=== PATIENT | male | born 2005 | race Caucasian/White ===

== ENCOUNTER 2024-06-09 17:28 | Emergency (ER) | payer SELFPAY ==
--- NOTE | 2024-06-09 17:37 | ED.GENADULT ---
HPI - General Adult General Chief complaint: Skin/Abscess/Foreign Body Stated complaint: Rash Source: patient Mode of arrival: ambulatory Limitations: no limitations History of Present Illness HPI narrative: 18 y/o male presented for c/o itchy blister rash to arms and abdomen for about 5 days. Reports a few lesions to the left face and ear and thighs. Pt reports concern for poison yazmin, stating it started after clearing weeds. Pt did not wear a shirt while outside. Has been taking Benadryl, applied neosporin to some of the sites. Endorses draining from some of the blisters. Denies lip, tongue, or throat swelling, shortness of breath or wheezing. Denies changes to soap, detergent, lotion, or any other exposures. No one else in the house or any contacts with similar symptoms. Related Data Allergies Allergy/AdvReac Type Severity Reaction Status Date / Time No Known Allergies Allergy Verified 06/09/24 17:44 Review of Systems Review of Systems: CONSTITUTIONAL: Denies body aches, fever, chills, or sweats. EYES: Denies visual changes, redness, or discharge. ENT: Denies rhinorrhea, congestion CARDIOVASCULAR: Denies chest pain, palpitations, or edema. RESPIRATORY: Denies cough or dyspnea. GASTROINTESTINAL: Denies abdominal pain, nausea, vomiting, or diarrhea. SKIN: reports rash MUSCULOSKELETAL: Denies back pain, joint pain, or myalgia. NEUROLOGIC: Denies headache, numbness, tingling, or weakness. PMFSH Comments At time of signature, I have reviewed and agree with nursing past medical, surgical, social and family history unless otherwise noted. Please see nursing chart for further information. There is no relevant family history pertinent to the presenting complaint Exam Narrative: GENERAL: Well-appearing, well-nourished, and in no acute distress. EYES: PERRLA, conjunctivae clear, and EOMI. Mild left upper lid swelling. ENT: Mucous membranes moist. Oropharynx without edema, erythema or lesions. NECK: Supple. No lymphadenopathy CHEST: Clear to auscultation. No respiratory distress. HEART: Regular rate and rhythm. SKIN: Warm, dry. Scattered vesicles on erythematous base diffusely over the abdomen and upper extremities c/w contact dermatitis, many weeping lesions, no apparent infections. Few lesions to face and left ear and bilateral thighs. NEURO: Alert and oriented x3. PSYCH: Normal mood and affect Course Course Emergency Course: Patient is aware of diagnosis, understands and agrees to treatment plan. Anticipatory guidance given. Patient agrees to follow-up as directed and is aware of reasons to seek care at the emergency department. Portions of this record may have been created with voice recognition software Level of Care: Express Care Visit Vital Signs Vital signs: Reviewed Medical Decision Making MDM Narrative Medical decision making narrative: Discussed physical exam findings c/w contact dermatitis to torso and upper extremities. IM Solumedrol and pepcid given. Reviewed Rx's. Advised supportive measures and signs/symptoms to go to the ER. Pt is appropriate for outpt treatment and f/u. Differential Diagnosis Differential Diagnosis: Viral exanthema, contact dermatitis, allergic dermatitis, eczema, urticaria, insect bites, impetigo, tinea, folliculitis Discharge Plan Discharge Clinical Impression: Contact dermatitis Patient Disposition: Home, Self-Care Condition: Stable Instructions: Contact Dermatitis (ED) Additional Instructions: Take steroids and Pepcid as directed. -- Start tomorrow 06/10 Benadryl every 8 hours as needed Ok to apply neosporin to sites. You can apply cream such as benadryl, hydrocortisone or calamine as needed for itching. Cool compresses to the sites of itching, avoid hot water and hot temperatures. Avoid scratching to reduce the risk of infection Wash with gentle soap and water only, allow to fully dry You can keep the sites covered while draining Follow up with
[2024-06-09 17:40] VITALS: BP 157/90; PULSE 101; RESP 16; TEMP 37.5; O2SAT 99
[2024-06-09 17:44] VITALS: BP 157/90; PULSE 101; RESP 99; TEMP 37.5; O2SAT 99
[2024-06-09] MEDS: FAMOTIDINE 20 MG TABLET 40 MG PO (17:50)
[2024-06-09] MEDS: methylPREDNISolone SOD SUCC 125 MG VIAL IM (17:51)
== END 2024-06-09 18:01 | disposition home or self-care (01) ==
PROVIDERS: Emergency Provider Nurse Practitioner Family
DX: L25.9 Unspecified contact dermatitis, unspecified cause (principal)
CPT/HCPCS: 96372; 99213; A9270; G0463; J2919

== ENCOUNTER 2025-08-10 09:13 | Emergency (ER) | payer OTHER, SELFPAY ==
--- NOTE | ~2025-08-10 | XR_ITS ---
EXAMINATION: XR finger 5th RT min 2V DATE: 08/10/2025 09:42 INDICATION: Softball injury with pain to the right fifth finger TECHNIQUE: Dorsal palmar, lateral and 2 oblique views of the right fifth digit were obtained COMPARISON: None FINDINGS: Essentially nondisplaced oblique extra-articular diaphyseal fracture of the right fifth proximal phalanx which remains in essentially anatomic alignment. No other fractures identified. Joint spaces are normal. Soft tissue swelling about the base of the fifth digit. IMPRESSION: 1. Nondisplaced oblique extra articular fracture of the right fifth proximal phalangeal diaphysis. Reviewed, dictated and finalized at location A. IMPRESSION: 1. Nondisplaced oblique extra articular fracture of the right fifth proximal ph alangeal diaphysis.
[2025-08-10 09:24] VITALS: BP 139/79; PULSE 58; RESP 18; TEMP 36.8; O2SAT 100
--- NOTE | 2025-08-10 10:00 | ED.UPPEXIN ---
HPI - Extremity Injury (Upper) General Chief Complaint: Extremity Injury, Upper Stated Complaint: INJURED R FINGER Time Seen by Provider: 08/10/25 09:45 Source: patient and RN notes reviewed Mode of arrival: ambulatory Limitations: no limitations History of Present Illness HPI narrative: 19-year-old male presents Express Care complaining of right pinky injury. Patient said yesterday is playing softball when he dove for a ball hyperextended his right pinky. Since then he has pain and swelling to the proximal part of his pinky. Patient denies any other injuries. Denies any numbness or tingling. Patient applying ice to help with the swelling and drink pineapple juice for inflammation. Related Data Allergies Allergy/AdvReac Type Severity Reaction Status Date / Time No Known Allergies Allergy Verified 06/09/24 17:44 Review of Systems Review of Systems: CONSTITUTIONAL: Denies fever, chills, or sweats. EYES: Denies visual changes, redness, or discharge. ENT: Denies rhinorrhea, congestion, sore throat, or otalgia. CARDIOVASCULAR: Denies chest pain, palpitations, or edema. RESPIRATORY: Denies cough or dyspnea. GASTROINTESTINAL: Denies abdominal pain, nausea, vomiting, or diarrhea. GENITOURINARY: Denies dysuria or hematuria. SKIN: Denies rash, wound, or itching. MUSCULOSKELETAL: Denies back pain, joint pain, or myalgia. Positive for right pinky injury and swelling NEUROLOGIC: Denies headache, numbness, or weakness. PSYCHIATRIC: Denies anxiety or depression. All other systems reviewed are negative, except as documented in HPI. PMFSH Comments At the time of my signature, I reviewed and agree with the nursing past medical, surgical, social, and family history. There is no relevant family history pertinent to the patient complaint. Exam Narrative: GENERAL: This is a well-nourished, well-developed adult, in no apparent distress. They are non ill-appearing, nontoxic appearing. HEAD: normocephalic, atraumatic. EYES: Sclera clear/white. Vision is grossly intact. Conjunctiva normal. Extraocular movement intact. EARS: External ears normal Hearing grossly intact. NOSE: External nose normal THROAT: Mucous membranes moist NECK: Neck supple CARDIOVASCULAR: Regular rate and rhythm RESPIRATORY: Respiratory rate normal, respiratory effort nonlabored, no respiratory distress NEURO: awake, alert, and oriented to person, place and time. There were no obvious focal neurologic abnormalities. EXTREMITIES: Right pinky: No obvious deformity. Proximal phalanx with mild swelling and bruising present. Normal range of motion of pinky. Patient able to flex and extend his pinky against resistance at the DIP, PIP, and MCP joint. It is tender throughout the proximal phalanx. No bony tenderness throughout the hand. Capillary refill less than 3 seconds. Right radial Pulse 2 +palpable. Normal sensation. Neurovascular status intact distal injury. Patient able to wiggle his fingers. Patient can make a fist, stop sign, thumbs-up sign, okay sign. Radial and ulnar nerve distribution intact. BACK: Nontender without deformity. Course Course Emergency Course: Portions of this record may have been created with voice recognition software Level of Care: Express Care Visit Vital Signs Vital signs: Vital Signs Temperature 98.2 F 08/10/25 09:24 Pulse Rate 58 L 08/10/25 09:24 Respiratory Rate 18 08/10/25 09:24 Blood Pressure 139/79 08/10/25 09:24 Pulse Oximetry 100 08/10/25 09:24 Temperature 98.2 F 08/10/25 09:24 Pulse Rate 58 L 08/10/25 09:24 Respiratory Rate 18 08/10/25 09:24 Blood Pressure 139/79 08/10/25 09:24 Pulse Oximetry 100 08/10/25 09:24 Reviewed Procedures Orthopedic Splinting/Casting Injury #1: Splinting/Casting Date: 08/10/25 Splinting/Casting Time: 10:03 Side: right Upper Extremity Injury Location: finger (5th digit) Lower Extremity Immobilizer: katelyn tape Splint: prefabricated Pre-Formed: metal foam finger splint Pre-Procedure Neuro Vascular Exam: normal Post-Procedure Neuro Vascular Exam: normal Additional Comments: Patient tolerated procedure well. MDM - Extremity Injury (Upper) MDM Narrative Medical decision making narrative: X-ray of right pinky shows a nondisplaced oblique fracture the proximal phalanx. Fracture appears stable, middle finger splint and katelyn tape applied. Patient is from [place] and is currently in school in this area and has no primary doctor. Refer patient to hand specialist an orthopedist to have follow-up with 1 of the other. Advised patient to try hand specialist 1st if not follow-up with ortho. Discussed physical exam findings. Advised supportive measures and signs/symptoms to go to the ER. Pt is appropriate for outpt treatment and f/u. Differential Diagnosis Differential diagnosis: Likely finger sprain, dislocation of finger, fracture of hand and other (Finger fracture) Imaging Data Radiologist's impression: ITS Impressions Finger X-Ray 08/10/25 09:45 IMPRESSION: 1. Nondisplaced oblique extra articular fracture of the right fifth proximal phalangeal diaphysis. Critical Care Time Critical Care Time Critical Care Time: No Discharge Plan Discharge Clinical Impression: Closed fracture of proximal phalanx of little finger Qualifiers: Encounter type: initial encounter Fracture alignment: nondisplaced Laterality: right Qualified Code(s): S62.646A - Nondisplaced fracture of proximal phalanx of right little finger, initial encounter for closed fracture Patient Disposition: Home Condition: Stable Instructions: Antibiotic Form, Finger Fracture (ED) Additional Instructions: The x-ray of your right pinky shows a fracture at the proximal part of your pinky. Please wear the middle finger splint at all times and keep it katelyn-taped to your ring finger. You may take the splint off to shower and then reapply it. Apply ice 15-20 minute intervals several times a day You may take ibuprofen 600 mg to 800 mg every 6-8 hours. Do not exceed more than 800 mg of ibuprofen per dose. Do not exceed more than 3200 mg ibuprofen in a day. You may take up to 1000 mg Tylenol every 6-8 hours. Do not exceed 1000 mg per dose, do exceed more than 4000 mg of Tylenol in a day. Follow-up with hand specialist orthopedist in 3-5 days for further evaluation and management. Please go to the ER for any serious concerns such as numbness and tingling, severe pain, cold or blue fingers, or any serious concerns. Patient Language: Australian Prescriptions: No Action famotidine [Pepcid] 40 mg tablet 40 mg PO DAILY Qty: 10 0RF prednisone 20 mg tablet 20 mg PO DAILY Qty: 18 0RF Rx Instructions: take 3 tablets daily for 3 days, then 2 tablets daily for 3 days then 1 tablet daily for 3 days Follow-up/Referrals: Deondre Romero MD [Physician, Plastic Surgery] - 3 Days Clinical Impression: Closed fracture of proximal phalanx of little finger PHYSICIAN,[facility] [Primary Care Provider, Internal Medicine] Edy Burton MD [Physician, Orthopedics] Clinical Impression: Closed fracture of proximal phalanx of little finger Time of Disposition: 09:58
== END 2025-08-10 10:01 | disposition home or self-care (01) ==
DX: S62.646A Nondisplaced fracture of proximal phalanx of right little finger, initial encounter for closed fracture (principal); X50.9XXA Other and unspecified overexertion or strenuous movements or postures, initial encounter; Y93.64 Activity, baseball
CPT/HCPCS: 29130; 73140; 99214; G0463